=== PATIENT | female | born 1950 | race Caucasian/White ===

== ENCOUNTER → 2017-05-10 | Outpatient (CLI) | payer OTHER | LOC: BMCIMAGING 15:58 | PROVIDERS: ATTEND Family Medicine | DX: R05 Cough (principal) ==

== ENCOUNTER → 2017-07-02 | Outpatient (CLI) | payer OTHER | LOC: BMCIMAGING 12:24 | PROVIDERS: ATTEND Family Medicine | DX: Z13.820 Encounter for screening for osteoporosis (principal); Z78.0 Asymptomatic menopausal state ==

== ENCOUNTER 2017-09-23 06:22 | Emergency (ER) | payer OTHER ==
--- NOTE | 2017-09-23 06:39 | CPEKG ---
Heart Rate: 75 RR Interval: 800 P-R Interval: 128 QRSD Interval: 88 QT Interval: 396 QTC Interval: 443 P Albion: 59 QRS [place]ion: 3 T Wave [place]: 40 EKG Severity - OTHERWISE NORMAL ECG - EKG Impression: SINUS RHYTHM EKG Impression: VENTRICULAR PREMATURE COMPLEX Electronically Signed By: Andrés Anglin 23-Sep-2017 06:49:17
--- NOTE | 2017-09-23 06:47 | EDPHY ---
H & P Stated Complaint: CP, "racing heart" - Personal History Current Tetanus/Diphtheria Vaccine: Unsure Current Tetanus Diphtheria and Acellular Pertussis (TDAP): Unsure - Medical/Surgical History Hx Asthma: Yes Hx Chronic Respiratory Disease: No Hx Diabetes: No Hx Cardiac Disease: No Hx Renal Disease: No Hx Cirrhosis: No Hx Alcoholism: No Hx HIV/AIDS: No Hx Splenectomy or Spleen Trauma: No Other PMH: HTN, asthma - Social History Smoking Status: Never smoked Time Seen by Provider: 09/23/17 06:40 HPI/ROS: Chief Complaint: Heart racing, chest pressure HPI: 66-year-old woman was recently diagnosed with hypertension 3 days ago and started on losartan by her primary care physician. Patient woke up at 2 o' clock this morning suddenly with the sensation that her heart was racing. She then developed pressure in the left side of her chest radiating to her left arm. At worst was a 4/10. The chest pressure lasted about 45-50 minutes. She is continuing to feel like her heart is racing. She does have a history of some anxiety in the past for which she takes CBD oil. She has never had similar symptoms to this. No recent illness. No fevers or chills. No nausea or vomiting. Does not have a family history of coronary artery disease or other risk factors for coronary disease. She had no aggravating factors. States that felt a little bit better to massage her arm. She has had some episodes of heart racing in the past but has never had felt chest pressure. ROS: 10 point Review of Systems is negative except as noted in the HPI. PMH: Hypertension Social History: No smoking, occasional alcohol, no recreational drug use Family History: No family history of coronary artery disease, stroke, high blood pressure or diabetes Physical Exam: Gen: Awake, Alert, anxious appearing HEENT: Nose: no rhinorrhea Eyes: PERRLA, EOMI Mouth: Moist mucosa Neck: Supple, no JVD Chest: nontender, lungs clear to auscultation Heart: S1, S2 normal, no murmur Abd: Soft, non-tender, no guarding Back: no CVA tenderness, no midline tenderness Ext: no edema, non-tender Skin: no rash Neuro: CN II-XII intact, Sensation grossly intact, Strength 5/5 in bilateral upper and lower extremities (Andrés Anglin) Constitutional: Initial Vital Signs Temperature (C) 36.6 C 09/23/17 06:27 Heart Rate 85 09/23/17 06:27 Respiratory Rate 20 09/23/17 06:27 Blood Pressure 179/107 H 09/23/17 06:27 O2 Sat (%) 96 09/23/17 06:27 O2 Delivery Mode Room Air Allergies/Adverse Reactions: peanut Allergy (Verified 09/23/17 06:30) tree nut Allergy (Verified 09/23/17 06:30) Home Medications: Medication Instructions Recorded Losartan Potassium 09/23/17 Medical Decision Making - Diagnostics EKG Interpretation: ECG time 6:29 a.m., sinus rhythm with a rate of 75, normal axis, normal intervals, no acute ST or T-wave changes. There is a single premature ventricular contraction. (Andrés Anglin) ED Course/Re-evaluation: 66-year-old woman woke with the sensation that her heart was racing and developed some left substernal chest pressure. ECG shows no acute ischemia. She is having some infrequent PVCs. Will check troponin, chest x-ray and reassess. She does not have any risk factors for coronary artery disease other than recent diagnosis of hypertension. She is hypertensive in the emergency department. 0700 patient signed out to Dr. Madison pending results of her diagnostic testing. (Andrés Anglin) Other Provider: I assumed care of the patient at 0700. I reviewed the patient's EKG which demonstrates no evidence of ischemia. The patient's 4 hr troponin is also negative. The patient's chest x-ray demonstrates no evidence of a obvious infiltrate. There is no cardiomegaly or widened mediastinum. She has remained chest pain-free throughout her stay in the emergency department. I discussed with her the risks and benefits of further evaluation. She is felt to be low risk for acute coronary syndrome. The patient is comfortable following up with Cardiology as an outpatient and returning to the emergency department for any recurrent chest pain or difficulty breathing. She does understand that we cannot fully exclude the diagnosis of coronary artery disease based upon the testing in the emergency department today. She has been referred to Dr. Sky Garibay our on-call interior design consultant. (Dhruv Madison) - Data Points Laboratory Results: Laboratory Results 09/23/17 06:30 09/23/17 06:30 09/23/17 09/23/17 06:30 06:30 WBC 8.20 10^3/uL 10^3/uL (3.80-9.50) RBC 5.31 10^6/uL 10^6/uL (4.18-5.33) Hgb 15.6 g/dL g/dL (12.6-16.3) Hct 45.2 % % (38.0-47.0) MCV 85.1 fL fL (81.5-99.8) MCH 29.4 pg pg (27.9-34.1) MCHC 34.5 g/dL g/dL (32.4-36.7) RDW 13.5 % % (11.5-15.2) Plt Count 221 10^3/uL 10^3/uL (150-400) MPV 10.5 fL fL (8.7-11.7) Neut % (Auto) 36.1 % L % (39.3-74.2) Lymph % (Auto) 52.1 % H % (15.0-45.0) [place] % (Auto) 8.9 % % (4.5-13.0) Eos % (Auto) 2.2 % % (0.6-7.6) Baso % (Auto) 0.6 % % (0.3-1.7) Nucleat RBC Rel Count 0.0 % % (0.0-0.2) Absolute Neuts (auto) 2.96 10^3/uL 10^3/uL (1.70-6.50) Absolute Lymphs (auto) 4.27 10^3/uL H 10^3/uL (1.00-3.00) Absolute Monos (auto) 0.73 10^3/uL 10^3/uL (0.30-0.80) Absolute Eos (auto) 0.18 10^3/uL 10^3/uL (0.03-0.40) Absolute Basos (auto) 0.05 10^3/uL 10^3/uL (0.02-0.10) Absolute Nucleated RBC 0.00 10^3/uL 10^3/uL (0-0.01) Immature Gran % 0.1 % % (0.0-1.1) Immature Gran # 0.01 10^3/uL 10^3/uL (0.00-0.10) Sodium 143 mEq/L mEq/L (135-145) Potassium 4.0 mEq/L mEq/L (3.5-5.2) Chloride 107 mEq/L mEq/L (97-110) Carbon Dioxide 22 mEq/l mEq/l (22-31) Anion Gap 14 mEq/L mEq/L (8-16) BUN 20 mg/dL mg/dL (7-23) Creatinine 0.8 mg/dL mg/dL (0.6-1.0) Estimated GFR > 60 Glucose 99 mg/dL mg/dL (70-100) Calcium 9.2 mg/dL mg/dL (8.5-10.4) Troponin I < 0.012 ng/mL ng/mL (0.000-0.034) Medications Given: Discontinued Medications Aspirin (Aspirin) 324 mg PO EDNOW ONE Stop: 09/23/17 06:48 Last Admin: 09/23/17 06:51 Dose: 324 mg Departure - Departure Disposition: [facility] Inpatient Acute Clinical Impression: Chest pain Condition: Good Instructions: Chest Pain (ED) Additional Instructions: 1. Based upon the testing done in the Emergency Department today we see no evidence of a heart attack. 2. We are unable to fully exclude coronary artery disease based upon the testing available in the Emergency Department. 3. For this reason, we would like you to be seen by cardiology for consideration of additional testing within the next 3 days. 4. Please contact the interior design consultant you have been referred to schedule this appointment as soon as possible. Their offices are typically open from 8:30am- 5pm M-F. 5. Please return to the Emergency Department immediately for any recurrent chest pain, difficulty breathing or other concerns. Referrals: Daniel Garibay MD [Medical Doctor] - As per Instructions
[2017-09-23 06:50] LABS: PLATELET COUNT 221 10^3/uL (150-400)
[2017-09-23] MEDS: ASPIRIN 81 MG CHEWABLE TAB PO ONE (06:51)
[2017-09-23 07:59] VITALS: BP 140/97
== END 2017-09-23 07:58 | disposition home or self-care (01) ==
DX: R07.9 Chest pain, unspecified (principal); I10 Essential (primary) hypertension; J45.909 Unspecified asthma, uncomplicated